=== PATIENT | female | born 1990 | race Two or more races ===

== ENCOUNTER 2016-07-04 12:35 | Emergency (ER) | payer OTHER ==
[2016-07-04 12:41] VITALS: BP 117/50; PULSE 61; TEMP 98.1; BMI 31.6
--- NOTE | 2016-07-04 14:34 | PDOC ---
History of Present Illness - General Chief Complaint: Cold Symptoms Stated Complaint: chest x-ray, noticed blood in sputum Time Seen by Provider: 07/04/16 14:05 History Source: Patient - History of Present Illness Timing/Duration: reports: other Associated Symptoms: reports: cough. denies: chest pain/soreness, fever/chills , nasal congestion, nasal drainage, shortness of breath, sore throat, wheezing Past History - Past Medical History Allergies/Adverse Reactions: Allergies Allergy/AdvReac Type Severity Reaction Status Date / Time peanut Allergy Verified 07/04/16 12:41 Home Medications: Ambulatory Orders Amoxicillin - [Amoxicillin 500mg Capsule -] 500 mg PO TID #30 capsule 05/07/12 Other medical history: denies - Psycho/Social/Smoking Cessation Hx Anxiety: No Suicidal Ideation: No Smoking Status: Yes Smoking History: Current every day smoker Number of Cigarettes Smoked Daily: 7 Information on smoking cessation initiated: No Hx Alcohol Use: No Drug/Substance Use Hx: No Substance Use Type: None Review of Systems - Review of Systems Constitutional: No: Chills, Fever, Unintentional Wgt. Loss Respiratory: Yes: Hemoptysis. No: Shortness of Breath, Wheezing *Physical Exam - Vital Signs Last Vital Signs Temp Pulse Resp BP Pulse Ox 98.1 F 61 18 117/50 98 07/04/16 12:39 07/04/16 12:39 07/04/16 12:39 07/04/16 12:39 07/04/16 12:39 - Physical Exam General Appearance: Yes: Appropriately Dressed. No: Apparent Distress HEENT: positive: Normal ENT Inspection, Normal Voice, TMs Normal, Pharynx Normal. negative: Scleral Icterus (R), Scleral Icterus (L) Neck: positive: Supple Respiratory/Chest: positive: Lungs Clear, Normal Breath Sounds. negative: Respiratory Distress Cardiovascular: positive: Regular Rate, S1, S2 Integumentary: positive: Dry, Warm Neurologic: positive: Fully Oriented, Alert, Normal Mood/Affect ED Treatment Course - RADIOLOGY Radiology Studies Ordered: Category Date Time Status CHEST PA & LAT [RAD] Stat Radiology 07/04/16 14:28 Ordered Medical Decision Making - Medical Decision Making 07/04/16 14:29 25-year-old female, approximately 3-pack-year history, here with 1 e/o hemoptysis. Patient states she's had "a cold" for the past 3 days and that last night when she coughed, her sputum was blood-streaked. Denies any shortness of breath, chest pain, fever or chills. States she went to an urgent ENT clinic this a.m. and was scoped with no remarkable findings. States Lai referred her to ED for chest x-ray. Patient well-appearing and stable with unremarkable exam. Hemoptysis possibly 2/2 prolonged coughing from m/l uri. CXR pending 07/04/16 15:30 CXR negative. Pt discharged in stable condition w/ smoking cessation and pmd f/u 07/04/16 15:34 *DC/Admit/Observation/Transfer Diagnosis at time of Disposition: Cough - Discharge Dispostion Disposition: HOME Condition at time of disposition: Good - Patient Instructions Printed Discharge Instructions: DI for Viral Upper Respiratory Infection -- Adult Additional Instructions: Chest x-ray was negative for any infection. The cause of the small amount of blood in her sputum was most likely from prolonged coughing. Strongly consider smoking cessation with patch or gum. Please follow-up with your PMD
== END 2016-07-04 15:40 | disposition home or self-care (01) ==
LOC: JERFT 12:35
DX: J06.9 Acute upper respiratory infection, unspecified (principal); R05 Cough
CPT/HCPCS: 71020-TC; 84703; 99281-25

== ENCOUNTER 2022-08-23 16:12 | Emergency (ER) | payer OTHER ==
[2022-08-23 16:28] VITALS: BP 114/72; PULSE 89; RESP 18; TEMP 98; BMI 27.6
[2022-08-23] MEDS ORDERED: KETOROLAC TROMETHAMINE 30 MG/1 ML VIAL IM ONE (16:51)
[2022-08-23] MEDS ORDERED: LIDOCAINE 5% TOPICAL PATCH TP ONE (16:51)
[2022-08-23] MEDS ORDERED: METHOCARBAMOL 500 MG TABLET PO ONE (16:52)
[2022-08-23] MEDS ORDERED: LIDOCAINE 5% TOPICAL PATCH ONE (16:55)
[2022-08-23] MEDS ORDERED: METHOCARBAMOL 500 MG TABLET ONE (16:55)
[2022-08-23] MEDS ORDERED: KETOROLAC TROMETHAMINE 30 MG/1 ML VIAL ONE (16:56)
[2022-08-23] MEDS ORDERED: LIDOCAINE PATCH REMOVAL MC SCH (22:00)
== END 2022-08-23 18:50 | disposition home or self-care (01) ==
LOC: JER 16:12 → JERFT 16:12
PROC: 3E023GC Introduction of Other Therapeutic Substance into Muscle, Percutaneous Approach (ICD-10-PCS; principal; 2022-08-23)
DX: M25.531 Pain in right wrist (principal); M25.511 Pain in right shoulder
CPT/HCPCS: 71101-TC-RT-FY; 72070-TC-FY; 73030-TC-RT-FY; 73110-TC-RT-FY; 73130-TC-RT-FY; 99285-25